=== PATIENT | female | born 1995 | race Caucasian/White ===

== ENCOUNTER 2017-01-29 12:31 | Emergency (ER) | payer OTHER ==
[2017-01-29 13:21] VITALS: BP 111/56; PULSE 89; TEMP 98.3; BMI 25.7
--- NOTE | 2017-01-29 14:06 | PDOC ---
History of Present Illness - General Chief Complaint: Eye Problem Stated Complaint: RT EYE DISCOMFORT Time Seen by Provider: 01/29/17 13:37 History Source: Patient Exam Limitations: No Limitations - History of Present Illness Initial Comments: 01/29/17 14:52 Chief complaint: Eye itching Patient 21-year-old female who wears contact lenses, was [place], and noticed some itching and dryness to the eyelid, been rubbing the eye, she took the contact lenses out 3 days ago, has not noticed any pain to the eye, photophobia but has noticed small amount of increased drainage, yellow discharge specially in comparison to the other eye which is asymptomatic. pt does not have glasses, and is unable to do visual acuity GENERAL/CONSTITUTIONAL: No fever, weakness. dizziness HEAD, EYES, EARS, NOSE AND THROAT: No change in vision. No ear pain or discharge. No sore throat. + Right eye itching and drainage CARDIOVASCULAR: No chest pain RESPIRATORY: No shortness of breath or cough GASTROINTESTINAL: No pain, nausea, vomiting, diarrhea or constipation GENITOURINARY: No dysuria MUSCULOSKELETAL: No neck or back pain SKIN: No rash NEUROLOGIC: No headache, vertigo, loss of consciousness, or loss of sensation. GENERAL: The patient is awake, alert, and fully oriented, in no acute distress. HEAD: Normal with no signs of trauma. EYES: Pupils equal, round and reactive to light, sclera anicteric, conjunctiva clear. right eye with slightly dry, scaly skin to eyelid. no signs of infection. no discharge now. ENT: pharynx: no erythema, no exudate, uvula midline NECK: supple CHEST: clear, nontender, rr ABD: soft, nontender EXTREMITIES: Normal range of motion, no edema. NEUROLOGICAL: Normal speech, normal gait. SKIN: Warm, Dry Past History - Past Medical History Allergies/Adverse Reactions: Allergies Allergy/AdvReac Type Severity Reaction Status Date / Time No Known Allergies Allergy Verified 01/29/17 13:16 Home Medications: Ambulatory Orders Ciprofloxacin 0.3% Eye Drops [Ciloxan 0.3% Eye Drops -] 2 drop OD Q4HWA #1 bottle 01/29/17 Levothyroxine [Synthroid -] 75 mcg PO DAILY 01/29/17 Seizures: Yes - Suicide/Smoking/Psychosocial Hx Smoking History: Never smoked Information on smoking cessation initiated: No Hx Alcohol Use: No Drug/Substance Use Hx: No Substance Use Type: None *Physical Exam - Vital Signs Last Vital Signs Temp Pulse Resp BP Pulse Ox 98.3 F 89 20 111/56 100 01/29/17 13:16 01/29/17 13:16 01/29/17 13:16 01/29/17 13:16 01/29/17 13:16 Procedures - Eye Procedure Alcaine Drops Administered: Yes Eye Irrigated w/ Saline(Ru Lens): No Progress: 01/29/17 14:56 fluorescein right eye negative for ulcer or abrasion Medical Decision Making - Medical Decision Making 01/29/17 14:54 dry skin to right eyelid, some increased yellow discharge to right eye. wears contacts. no pain. fluorescein stain negative. will give ciloxan drops given contact wear use and discharge. otc hydrocortisone to eyelid. follow up with opthamologist *DC/Admit/Observation/Transfer Diagnosis at time of Disposition: Irritation of right eye - Discharge Dispostion Disposition: HOME Condition at time of disposition: Stable Admit: No - Prescriptions Prescriptions: Ciprofloxacin 0.3% Eye Drops [Ciloxan 0.3% Eye Drops -] 2 drop OD Q4HWA #1 bottle - Referrals Referrals: Naty Garcia MD [Primary Care Provider] - Karl Medina MD [Staff Physician] - - Patient Instructions Additional Instructions: 2 drops to the right eye of ciloxan as directed for 5-7 days You can apply either Vaseline or [id number] cortisone cream to the skin around the eye Do not rub do not wear contact lenses until directed to by the precision thread grinder operator Follow-up with precision thread grinder operator Wednesday - Post Discharge Activity Forms/Work/School Notes: Back to Work
== END 2017-01-29 14:08 | disposition home or self-care (01) ==
LOC: JERFT 12:31
PROC: 3E1CX8Z Irrigation of Eye using Irrigating Substance (ICD-10-PCS; principal; 2017-01-29)
DX: H57.8 Other specified disorders of eye and adnexa (principal); E03.9 Hypothyroidism, unspecified; Z86.69 Personal history of other diseases of the nervous system and sense organs
CPT/HCPCS: 99281-25

== ENCOUNTER 2018-11-11 13:31 | Inpatient (IN) | payer OTHER ==
--- NOTE | 2018-11-11 13:42 | PDOC ---
Rapid Medical Evaluation Time Seen by Provider: 11/11/18 13:39 Medical Evaluation: Allergies Allergy/AdvReac Type Severity Reaction Status Date / Time No Known Allergies Allergy Verified 01/29/17 13:16 11/11/18 13:39 I have performed a brief exam on this patient. CC: SOB, fatigued. Decreased exercise tolerance. Hgb-7.3 at [facility]. PE: VSS. AF. Lungs CTAB. Conjunctiva and sublingual pallor. Denies active bleeding. Orders: anemia w/u The patient will proceed to the ER for further evaluation. 11/11/18 13:39 11/11/18 13:42 Discharge Disposition - Diagnosis SOB (shortness of breath) - Referrals - Patient Instructions - Post Discharge Activity
[2018-11-11 15:22] LABS: BASO % 0.9 % (0-2.0); HEMATOCRIT 23.3 % (32.4-45.2); HEMOGLOBIN 7.2 GM/dL (10.7-15.3); LYMPH % 31.7 % (8-40); MCH 20.7 pg (25.7-33.7); MCHC 30.8 g/dl (32.0-36.0); MEAN CELL VOLUME 67.3 fl (80-96); MEAN PLT VOLUME 8.1 fl (7.5-11.1); MONO % 5.2 % (3.8-10.2); NEUT % 59.2 % (42.8-82.8); PLATELET COUNT 302 K/MM3 (134-434); RBC 3.46 M/mm3 (3.60-5.2); RDW 19.2 % (11.6-15.6); WHITE BLOOD COUNT 6.6 K/mm3 (4.0-10.0)
[2018-11-11 15:35] LABS: INR 1.02 (0.83-1.09)
[2018-11-11 15:47] LABS: BILIRUBIN,TOTAL 0.4 mg/dL (0.2-1); BLOOD UREA NITROGEN 14.5 mg/dL (7-18); CALCIUM 8.7 mg/dL (8.5-10.1); CREATININE 0.9 mg/dL (0.55-1.3); POTASSIUM 3.5 mmol/L (3.5-5.1)
[2018-11-11 15:52] LABS: PH,URINE 5.5 (5.0-8.0); URINE APPEARANCE CLEAR; URINE BILIRUBIN NEGATIVE (NEGATIVE); URINE COLOR YELLOW; URINE GLUCOSE (UA) NEGATIVE (NEGATIVE); URINE KETONE NEGATIVE (NEGATIVE); URINE LEUK ESTERASE NEGATIVE (NEGATIVE); URINE NITRITE NEGATIVE (NEGATIVE); URINE PROTEIN NEGATIVE (NEGATIVE); URINE UROBILINOGEN 0.2 mg/dL (0.2-1.0)
[2018-11-11 15:59] LABS: IRON SERUM 22 ug/dL (50-175); TOTAL IRON BINDING CAPACITY 569 ug/dL (250-450)
--- NOTE | 2018-11-11 15:59 | PDOC ---
History of Present Illness - General Chief Complaint: Abnormal Lab Results (Outside) Stated Complaint: SENT BY PCP Time Seen by Provider: 11/11/18 13:39 History Source: Patient Exam Limitations: No Limitations Past History - Past Medical History Allergies/Adverse Reactions: Allergies Allergy/AdvReac Type Severity Reaction Status Date / Time No Known Allergies Allergy Verified 01/29/17 13:16 Home Medications: Ambulatory Orders Ciprofloxacin 0.3% Eye Drops [Ciloxan 0.3% Eye Drops -] 2 drop OD Q4HWA #1 bottle 01/29/17 Levothyroxine [Synthroid -] 75 mcg PO DAILY 01/29/17 Seizures: Yes - Suicide/Smoking/Psychosocial Hx Smoking History: Never smoked Hx Alcohol Use: Yes (social) Drug/Substance Use Hx: No Substance Use Type: None *Physical Exam - Vital Signs Last Vital Signs Temp Pulse Resp BP Pulse Ox 98.6 F 81 20 105/67 100 11/11/18 13:39 11/11/18 13:39 11/11/18 13:39 11/11/18 13:39 11/11/18 13:39 - Physical Exam General Appearance: No: Apparent Distress HEENT: negative: Pharyngeal Erythema, Tonsillar Exudate, Tonsillar Erythema, Nasal Congestion, Rhinorrhea Respiratory/Chest: positive: Lungs Clear, Normal Breath Sounds. negative: Respiratory Distress Cardiovascular: positive: Regular Rhythm, Regular Rate, S1, S2. negative: Murmur Gastrointestinal/Abdominal: positive: Normal Bowel Sounds, Soft. negative: Tender, Distended, Guarding, Rebound Extremity: negative: Pedal Edema, Calf Tenderness Integumentary: positive: Normal Color Neurologic: positive: Fully Oriented, Alert, Normal Mood/Affect ED Treatment Course - LABORATORY CBC & Chemistry Diagram: 11/11/18 15:12 11/11/18 15:12 - ADDITIONAL ORDERS Additional order review: Laboratory Results 11/11/18 11/11/18 11/11/18 15:12 15:12 15:12 PT with INR 12.00 INR 1.02 Sodium 140 Potassium 3.5 Chloride 103 Carbon Dioxide 26 Anion Gap 10 BUN 14.5 Creatinine 0.9 Est GFR (CKD-EPI)AfAm 105.93 Est GFR (CKD-EPI)NonAf 91.40 Random Glucose 95 Calcium 8.7 Total Bilirubin 0.4 AST 43 H ALT 38 Alkaline Phosphatase 73 Total Protein 8.0 Albumin 4.0 Urine Color Yellow Urine Appearance Clear Urine pH 5.5 Ur Specific [place] 1.027 Urine Protein Negative Urine Glucose (UA) Negative Urine Ketones Negative Urine Blood Negative Urine Nitrite Negative Urine Bilirubin Negative Urine Urobilinogen 0.2 Ur Leukocyte Esterase Negative 11/11/18 15:12 RBC 3.46 L MCV 67.3 L MCHC 30.8 L RDW 19.2 H MPV 8.1 Neutrophils % 59.2 Lymphocytes % 31.7 Monocytes % 5.2 Eosinophils % 3.0 Basophils % 0.9 Medical Decision Making - Medical Decision Making 22 y/o F hx of LORI (unknown cause), ?thyroid CA s/p thyroidectomy 7 years ago presents as states recently got insurance and want to [place] yesterday for evaluation and blood work. She was called back today as she was noted to have hemoglobin of 7.3. Patient mentions she has been feeling more fatigued, weak and having VALDES x 2 weeks. States she does have heavy menstrual cycles; cycles are regular in nature. Is currently not on her menstrual cycle. [facility] 10/25. Mentions last year, she was noted to have anemia and started on iron pills, but eventually she ran out and had no doctor for follow-up evaluation. Mentions no evaluation was also done re: her heavy cycles. Also mentions concern for hoarse voice for around 6 months; states doctor at clinic yesterday told her it was possibly related to allergies. Denies fever, URI sxs, congestion, cp, abd pain, n/v, urinary complaints, vaginal bleeding, hematuria, blood in stools, black stools. Hoarse voice - will need referral to ENT for further evaluation Microcytic anemia - Hgb here 7.2 Given symptomatic, will transfuse and admit patient Iron panel was sent and is pending results 11/11/18 15:55 Hgb 7.2 Iron and ferritin low, TIBC high Will transfuse 2 units as d/w Dr. Black Consent obtained Pending admission Signed out to GIANNI Fischer 11/11/18 16:14 *DC/Admit/Observation/Transfer Diagnosis at time of Disposition: SOB (shortness of breath) - Referrals Referrals: Naty Garcia MD [Primary Care Provider] - - Patient Instructions - Post Discharge Activity
--- NOTE | 2018-11-11 16:40 | PDOC ---
*Physical Exam - Vital Signs Last Vital Signs Temp Pulse Resp BP Pulse Ox 98.6 F 81 20 105/67 100 11/11/18 13:39 11/11/18 13:39 11/11/18 13:39 11/11/18 13:39 11/11/18 13:39 - Physical Exam General Appearance: Yes: Appropriately Dressed Rectal Exam: positive: normal exam. negative: hemorrhoids Integumentary: positive: Pale ED Treatment Course - LABORATORY CBC & Chemistry Diagram: 11/11/18 15:12 11/11/18 15:12 - ADDITIONAL ORDERS Additional order review: Laboratory Results 11/11/18 11/11/18 11/11/18 15:12 15:12 15:12 PT with INR INR Sodium Potassium Chloride Carbon Dioxide Anion Gap BUN Creatinine Est GFR (CKD-EPI)AfAm Est GFR (CKD-EPI)NonAf Random Glucose Calcium Iron 22 L TIBC 569 H Iron Saturation 3 L Unsaturated IBC 547 H Ferritin 2.1 L Total Bilirubin AST ALT Alkaline Phosphatase Creatine Kinase 428 H Creatine Kinase Index 0.6 CK-MB (CK-2) 2.8 Troponin I < 0.02 Total Protein Albumin Urine Color Yellow Urine Appearance Clear Urine pH 5.5 Ur Specific [place] 1.027 Urine Protein Negative Urine Glucose (UA) Negative Urine Ketones Negative Urine Blood Negative Urine Nitrite Negative Urine Bilirubin Negative Urine Urobilinogen 0.2 Ur Leukocyte Esterase Negative Urine HCG, Qual Negative Blood Type Antibody Screen Crossmatch 11/11/18 11/11/18 11/11/18 15:12 15:12 15:12 PT with INR 12.00 INR 1.02 Sodium 140 Potassium 3.5 Chloride 103 Carbon Dioxide 26 Anion Gap 10 BUN 14.5 Creatinine 0.9 Est GFR (CKD-EPI)AfAm 105.93 Est GFR (CKD-EPI)NonAf 91.40 Random Glucose 95 Calcium 8.7 Iron TIBC Iron Saturation Unsaturated IBC Ferritin Total Bilirubin 0.4 AST 43 H ALT 38 Alkaline Phosphatase 73 Creatine Kinase Creatine Kinase Index CK-MB (CK-2) Troponin I Total Protein 8.0 Albumin 4.0 Urine Color Urine Appearance Urine pH Ur Specific [place] Urine Protein Urine Glucose (UA) Urine Ketones Urine Blood Urine Nitrite Urine Bilirubin Urine Urobilinogen Ur Leukocyte Esterase Urine HCG, Qual Blood Type O POSITIVE Antibody Screen Negative Crossmatch See Detail 11/11/18 15:12 RBC 3.46 L MCV 67.3 L MCHC 30.8 L RDW 19.2 H MPV 8.1 Neutrophils % 59.2 Lymphocytes % 31.7 Monocytes % 5.2 Eosinophils % 3.0 Basophils % 0.9 Medical Decision Making - Medical Decision Making 11/11/18 16:40 patient signed out to hospitalist team. *DC/Admit/Observation/Transfer Diagnosis at time of Disposition: SOB (shortness of breath) Anemia Qualifiers: Anemia type: iron deficiency Iron deficiency anemia type: unspecified iron deficiency Qualified Code(s): D50.9 - Iron deficiency anemia, unspecified - Discharge Dispostion Decision to Admit order: Yes Decision to Admit order Date/Time: Decision to Admit Order Category Date Time Status Decision to Admit to Hospital Routine Admission 11/11/18 16:39 Ordered - Referrals - Patient Instructions - Post Discharge Activity
[2018-11-11 17:39] VITALS: BMI 32.9
[2018-11-11 17:54] LABS: ANISOCYTOSIS 1+; MACROCYTOSIS 1+; PLATELET ESTIMATE NORMAL
--- NOTE | 2018-11-11 17:55 | HP ---
Admitting History and Physical - Primary Care Physician PCP: Naty Garcia - Admission Chief Complaint: shortness of breath with physical exertion. sent by PCP for blood transfusion. History of Present Illness: Patient is a 22 year old female with a significant past medical history of thyroid cancer with thyroidectomy 2009 s/p radiation therapy. Last radiation was on 2013. Thyroid cancer was diagnosed at age 15 and she has been followed by a valve seater operator/oncologist (Dr. Mendez) but has not seen him in approximately 3 years. She reports very heavy menstruation cycles. States her menstruation last approximately 7 days and on days 3-5, she has to change her menstrual pads almost hourly with numerous clots. Last menstrual cycle was on 10/25/2018. She does not currently follow with a BUSINESS SUPPORT SPECIALIST since she was recently uninsured. She has never received prbc transfusion. She states that from the last few months she has noted that her lower extremities are edematous. She also has periorbital edema. She has been evaluated by her PCP for this. She also reports a hoarse voice and was but on allergy medications and referred to an ENT. She reports to the ED for shortness of breath and increased fatigued with exertion. She has decreased tolerance to exercise. Her Hgb was reported to be [address] [facility] and was sent to the ED for symptomatic anemia. ED course noted for: - 7.2/23.3 - stool occult blood negative - iron studies: iron 22, tibc 569, iron sat 3, unsat ibc 547, ferritin 2.1 History Source: Patient, Family Member Limitations to Obtaining History: No Limitations - Past Medical History ...LMP: 10/25/18 ...: No Heme/Onc: Yes: Anemia - Past Surgical History Additional Past Surgical History: thyroid removal 2/2 to malignant cells/nodules s/p RT treatment - Smoking History Smoking history: Never smoked - Alcohol/Substance Use Hx Alcohol Use: Yes (social) History of Substance Use: reports: None - Social History Usual Living Arrangement: Yes: With Parent ADL: Independent History of Recent Travel: No Home Medications - Allergies Allergies/Adverse Reactions: Allergies Allergy/AdvReac Type Severity Reaction Status Date / Time No Known Allergies Allergy Verified 01/29/17 13:16 - Home Medications Home Medications: Ambulatory Orders Levothyroxine Sodium 1 tab PO DAILY 11/11/18 Ferrous Sulfate [Feosol] 325 mg PO BIDWM #60 ud 11/12/18 Family Disease History - Family Disease History Family Disease History: Other: Father (none), Mother (cardiomyopathy) Review of Systems - Review of Systems Constitutional: reports: No Symptoms Eyes: reports: No Symptoms HENT: reports: No Symptoms Neck: reports: No Symptoms Cardiovascular: reports: No Symptoms Respiratory: reports: Exercise Intolerance Gastrointestinal: reports: No Symptoms Genitourinary: reports: No Symptoms Breasts: reports: No Symptoms Reported Musculoskeletal: reports: No Symptoms Integumentary: reports: No Symptoms Neurological: reports: No Symptoms Endocrine: reports: No Symptoms Hematology/Lymphatic: reports: Excessive Bleeding Psychiatric: reports: No Symptoms Physical Examination Vital Signs: Vital Signs Temperature 98.2 F 11/11/18 17:24 Pulse Rate 76 11/11/18 17:00 Respiratory Rate 20 11/11/18 17:24 Blood Pressure 109/66 11/11/18 17:24 O2 Sat by Pulse Oximetry (%) 100 11/11/18 17:00 Constitutional: Yes: Well Nourished, No Distress, Calm Eyes: Yes: WNL HENT: Yes: Hoarseness, Other (periorbital edema) Neck: Yes: WNL Cardiovascular: Yes: Regular Rate and Rhythm Respiratory: Yes: CTA Bilaterally, SOB on Exertion Gastrointestinal: Yes: WNL, Normal Bowel Sounds ...Rectal Exam: Yes: Other (done by ED resident) Breast(s): Yes: WNL Musculoskeletal: Yes: WNL Edema: LLE: Trace, RLE: Trace Peripheral Pulses: Left Femoral: 4+, Right Femoral: 4+ Integumentary: Yes: WNL Neurological: Yes: Alert, Oriented ...Motor Strength: WNL Psychiatric: Yes: Alert, Oriented Labs: CBC, BMP 11/11/18 15:12 11/11/18 15:12 Problem List - Problems (1) Symptomatic anemia Assessment/Plan: for 2 units of prbc, will give 1 unit and repeat cbc prior to 2nd unit will give lasix 20 units after first unit monitor labs stool occult negative Code(s): D64.9 - ANEMIA, UNSPECIFIED (2) Hypothyroidism Assessment/Plan: continue home dose of synthroid Code(s): E03.9 - HYPOTHYROIDISM, UNSPECIFIED (3) Thyroid cancer Assessment/Plan: patient will follow up with her valve seater operator/oncologist, Dr. Roberts. Code(s): C73 - MALIGNANT NEOPLASM OF THYROID GLAND (4) Hoarse voice quality Assessment/Plan: patient has referral for an ENT. She will follow up as an outpatient no difficulty swallowing Code(s): R49.0 - DYSPHONIA (5) SOB (shortness of breath) Assessment/Plan: secondary to symptomatic anemia. no shortness of breath at rest monitor Code(s): R06.02 - SHORTNESS OF BREATH (6) Iron deficiency anemia due to chronic blood loss Assessment/Plan: for 2 units of prbc patient to f/u with her valve seater operator as an outpatient. she will need further workup including GI workup. She is refusing to get worked up here, during stay, wants to follow up as an outpatient. Code(s): D50.0 - IRON DEFICIENCY ANEMIA SECONDARY TO BLOOD LOSS (CHRONIC) (7) Prophylactic measure Assessment/Plan: fen no ivf monitor electrolytes monitor cmp full code Code(s): Z29.9 - ENCOUNTER FOR PROPHYLACTIC MEASURES, UNSPECIFIED Visit type - Emergency Visit Emergency Visit: Yes ED Registration Date: 11/11/18 Care time: The patient presented to the Emergency Department on the above date and was hospitalized for further evaluation of their emergent condition. - New Patient This patient is new to me today: Yes Date on this admission: 11/12/18 - Critical Care Critical Care patient: No
[2018-11-11] MEDS ORDERED: ACETAMINOPHEN 325 MG TABLET (FP) PO PRN (19:17)
[2018-11-11] MEDS ORDERED: FUROSEMIDE 40 MG/4 ML INJECTABLE VIAL IVPUSH ONE (22:00)
[2018-11-11 23:46] LABS: BASO % 0.8 % (0-2.0); EOS % 3.5 % (0-4.5); HEMATOCRIT 27.3 % (32.4-45.2); HEMOGLOBIN 8.6 GM/dL (10.7-15.3); LYMPH % 38.7 % (8-40); MCH 22.7 pg (25.7-33.7); MCHC 31.6 g/dl (32.0-36.0); MEAN PLT VOLUME 8.1 fl (7.5-11.1); MONO % 5.9 % (3.8-10.2); NEUT % 51.1 % (42.8-82.8); PLATELET COUNT 284 K/MM3 (134-434); RBC 3.79 M/mm3 (3.60-5.2); RDW 22.5 % (11.6-15.6); WHITE BLOOD COUNT 6.9 K/mm3 (4.0-10.0)
[2018-11-12] MEDS ORDERED: LEVOTHYROXINE NA 75 MCG TABLET (FP) PO SCH (07:00)
[2018-11-12 07:49] VITALS: BP 120/50; PULSE 95; TEMP 97.8
[2018-11-12 09:23] LABS: ALBUMIN 3.7 g/dl (3.4-5.0); BILIRUBIN,TOTAL 0.8 mg/dL (0.2-1); BLOOD UREA NITROGEN 15.7 mg/dL (7-18); CALCIUM 8.5 mg/dL (8.5-10.1); MAGNESIUM 2.1 mg/dL (1.8-2.4); POTASSIUM 3.5 mmol/L (3.5-5.1); TOT PROT 7.7 g/dl (6.4-8.2)
[2018-11-12 09:27] LABS: HEMOGLOBIN 10.4 GM/dL (10.7-15.3); MCHC 32.6 g/dl (32.0-36.0); MEAN CELL VOLUME 73.6 fl (80-96); MEAN PLT VOLUME 8.4 fl (7.5-11.1); PLATELET COUNT 277 K/MM3 (134-434); RBC 4.35 M/mm3 (3.60-5.2); RDW 24.5 % (11.6-15.6)
[2018-11-12] MEDS ORDERED: LEVOTHYROXINE NA 125 MCG TABLET (FP) PO ONE (10:09)
--- NOTE | 2018-11-12 10:10 | DS ---
Physical Exam: SUBJECTIVE: Patient seen and examined. States she feels much better. denies any shortness of breath. ambulating around room received two units of prbc without adverse affect patient to follow up with her TACK WELDER, ENT, and PCP as an outpatient. Encouraged her to call for an appointment on Wednesday and to see TACK WELDER as soon as possible. OBJECTIVE: discharge home with outpatient follow up. Vital Signs Period Temp Pulse Resp BP Sys/Martin Pulse Ox Last 24 Hr 97.8 F-98.6 F 64-95 15-20 95-120/50-76 99-100 PHYSICAL EXAM GENERAL: The patient is awake, alert, and fully oriented, in no acute distress. HEAD: Normal with no signs of trauma. EYES: PERRL, extraocular movements intact, sclera anicteric, conjunctiva clear. ENT: Ears normal, nares patent, oropharynx clear without exudates, moist mucous membranes. NECK: Trachea midline, full range of motion, supple. LUNGS: Breath sounds equal, clear to auscultation bilaterally HEART: Regular rate and rhythm ABDOMEN: Soft, nontender, nondistended, normoactive bowel sounds, no guarding, no rebound, no hepatosplenomegaly, no masses. EXTREMITIES: no edema. NEUROLOGICAL: Normal speech, gait steady PSYCH: Normal mood, normal affect. SKIN: Warm, dry, normal turgor, no rashes or lesions noted. LABS Laboratory Results - last 24 hr 11/11/18 11/11/18 11/11/18 15:12 15:12 15:12 WBC 6.6 RBC 3.46 L Hgb 7.2 L Hct 23.3 L MCV 67.3 L MCH 20.7 L MCHC 30.8 L RDW 19.2 H Plt Count 302 MPV 8.1 Absolute Neuts (auto) 3.9 Neutrophils % 59.2 Lymphocytes % 31.7 Monocytes % 5.2 Eosinophils % 3.0 Basophils % 0.9 Nucleated RBC % 0 Hypochromia 2+ Platelet Estimate Normal Platelet Comment No clumping noted Anisocytosis 1+ Microcytosis 1+ Macrocytosis 1+ Retic Count PT with INR 12.00 INR 1.02 Sodium 140 Potassium 3.5 Chloride 103 Carbon Dioxide 26 Anion Gap 10 BUN 14.5 Creatinine 0.9 Est GFR (CKD-EPI)AfAm 105.93 Est GFR (CKD-EPI)NonAf 91.40 Random Glucose 95 Calcium 8.7 Magnesium Iron TIBC Iron Saturation Unsaturated IBC Ferritin Total Bilirubin 0.4 AST 43 H ALT 38 Alkaline Phosphatase 73 Creatine Kinase Creatine Kinase Index CK-MB (CK-2) Troponin I Total Protein 8.0 Albumin 4.0 Urine Color Urine Appearance Urine pH Ur Specific Catlett Urine Protein Urine Glucose (UA) Urine Ketones Urine Blood Urine Nitrite Urine Bilirubin Urine Urobilinogen Ur Leukocyte Esterase Urine HCG, Qual Stool Occult Blood Blood Type Antibody Screen Crossmatch 11/11/18 11/11/18 11/11/18 15:12 15:12 15:12 WBC RBC Hgb Hct MCV MCH MCHC RDW Plt Count MPV Absolute Neuts (auto) Neutrophils % Lymphocytes % Monocytes % Eosinophils % Basophils % Nucleated RBC % Hypochromia Platelet Estimate Platelet Comment Anisocytosis Microcytosis Macrocytosis Retic Count 1.71 H PT with INR INR Sodium Potassium Chloride Carbon Dioxide Anion Gap BUN Creatinine Est GFR (CKD-EPI)AfAm Est GFR (CKD-EPI)NonAf Random Glucose Calcium Magnesium Iron 22 L TIBC 569 H Iron Saturation 3 L Unsaturated IBC 547 H Ferritin 2.1 L Total Bilirubin AST ALT Alkaline Phosphatase Creatine Kinase 428 H Creatine Kinase Index 0.6 CK-MB (CK-2) 2.8 Troponin I < 0.02 Total Protein Albumin Urine Color Urine Appearance Urine pH Ur Specific Catlett Urine Protein Urine Glucose (UA) Urine Ketones Urine Blood Urine Nitrite Urine Bilirubin Urine Urobilinogen Ur Leukocyte Esterase Urine HCG, Qual Stool Occult Blood Blood Type O POSITIVE Antibody Screen Negative Crossmatch See Detail 11/11/18 11/11/18 11/11/18 15:12 15:12 16:21 WBC RBC Hgb Hct MCV MCH MCHC RDW Plt Count MPV Absolute Neuts (auto) Neutrophils % Lymphocytes % Monocytes % Eosinophils % Basophils % Nucleated RBC % Hypochromia Platelet Estimate Platelet Comment Anisocytosis Microcytosis Macrocytosis Retic Count PT with INR INR Sodium Potassium Chloride Carbon Dioxide Anion Gap BUN Creatinine Est GFR (CKD-EPI)AfAm Est GFR (CKD-EPI)NonAf Random Glucose Calcium Magnesium Iron TIBC Iron Saturation Unsaturated IBC Ferritin Total Bilirubin AST ALT Alkaline Phosphatase Creatine Kinase Creatine Kinase Index CK-MB (CK-2) Troponin I Total Protein Albumin Urine Color Yellow Urine Appearance Clear Urine pH 5.5 Ur Specific Catlett 1.027 Urine Protein Negative Urine Glucose (UA) Negative Urine Ketones Negative Urine Blood Negative Urine Nitrite Negative Urine Bilirubin Negative Urine Urobilinogen 0.2 Ur Leukocyte Esterase Negative Urine HCG, Qual Negative Stool Occult Blood Blood Type O POSITIVE Antibody Screen Crossmatch 11/11/18 11/11/18 11/12/18 16:53 23:37 08:41 WBC 6.9 7.0 RBC 3.79 4.35 Hgb 8.6 L 10.4 L Hct 27.3 L D 32.0 L D MCV 72.0 L 73.6 L MCH 22.7 L 24.0 L MCHC 31.6 L 32.6 RDW 22.5 H 24.5 H Plt Count 284 277 MPV 8.1 8.4 Absolute Neuts (auto) 3.5 Neutrophils % 51.1 Lymphocytes % 38.7 D Monocytes % 5.9 Eosinophils % 3.5 Basophils % 0.8 Nucleated RBC % 0 Hypochromia Platelet Estimate Platelet Comment Anisocytosis Microcytosis Macrocytosis Retic Count PT with INR INR Sodium Potassium Chloride Carbon Dioxide Anion Gap BUN Creatinine Est GFR (CKD-EPI)AfAm Est GFR (CKD-EPI)NonAf Random Glucose Calcium Magnesium Iron TIBC Iron Saturation Unsaturated IBC Ferritin Total Bilirubin AST ALT Alkaline Phosphatase Creatine Kinase Creatine Kinase Index CK-MB (CK-2) Troponin I Total Protein Albumin Urine Color Urine Appearance Urine pH Ur Specific Catlett Urine Protein Urine Glucose (UA) Urine Ketones Urine Blood Urine Nitrite Urine Bilirubin Urine Urobilinogen Ur Leukocyte Esterase Urine HCG, Qual Stool Occult Blood Negative Blood Type Antibody Screen Crossmatch 11/12/18 08:41 WBC RBC Hgb Hct MCV MCH MCHC RDW Plt Count MPV Absolute Neuts (auto) Neutrophils % Lymphocytes % Monocytes % Eosinophils % Basophils % Nucleated RBC % Hypochromia Platelet Estimate Platelet Comment Anisocytosis Microcytosis Macrocytosis Retic Count PT with INR INR Sodium 138 Potassium 3.5 Chloride 102 Carbon Dioxide 29 Anion Gap 8 BUN 15.7 Creatinine 1.0 Est GFR (CKD-EPI)AfAm 93.26 Est GFR (CKD-EPI)NonAf 80.47 Random Glucose 104 Calcium 8.5 Magnesium 2.1 Iron TIBC Iron Saturation Unsaturated IBC Ferritin Total Bilirubin 0.8 AST 48 H ALT 39 Alkaline Phosphatase 78 Creatine Kinase Creatine Kinase Index CK-MB (CK-2) Troponin I Total Protein 7.7 Albumin 3.7 Urine Color Urine Appearance Urine pH Ur Specific Catlett Urine Protein Urine Glucose (UA) Urine Ketones Urine Blood Urine Nitrite Urine Bilirubin Urine Urobilinogen Ur Leukocyte Esterase Urine HCG, Qual Stool Occult Blood Blood Type Antibody Screen Crossmatch HOSPITAL COURSE: Date of Admission:11/11/18 Date of Discharge: 11/12/18 Minutes to complete discharge: 60 Discharge Summary Reason For Visit: SHORTNESS OF BREATH,ANEMIA Current Active Problems Anemia (Acute) Hoarse voice quality (Acute) Hypothyroidism (Acute) Iron deficiency anemia due to chronic blood loss (Acute) Prophylactic measure (Acute) SOB (shortness of breath) (Acute) Symptomatic anemia (Acute) Thyroid cancer (Acute) Condition: Stable - Instructions Diet, Activity, Other Instructions: Mrs Garcia: You were admitted for a blood transfusion for low blood counts. You have received 2 units of blood. We will be sending you home with the following instructions Vaginal Bleed: Please follow up with your renewable energy project manager by calling their office to make an appointment. You will need to be closely monitored so that your blood counts do not drop again. Continue taking the iron pills. It is important that you see your foundry operator/oncologist to follow up as well as discuss your iron deficiency anemia. Next steps: 1. follow up with your primary care doctor and ENT doctor 2. Follow up with foundry operator/oncologist to further evaluate your iron deficiency anemia Thank you for allowing us to care for you. Referrals: Jorgito Lawson MD [Staff Physician] - (ENT, call and make an appointment) Naty Garcia MD [Primary Care Provider] - Disposition: HOME - Home Medications Comprehensive Discharge Medication List: Ambulatory Orders Levothyroxine Sodium 1 tab PO DAILY 11/11/18 Problem List - Problems (1) Symptomatic anemia Assessment/Plan: for 2 units of prbc with stable hmg/hct start on iron supplements received lasix in between blood transfusions. stool occult negative Code(s): D64.9 - ANEMIA, UNSPECIFIED (2) Hypothyroidism Assessment/Plan: continue home dose of synthroid 200mcgs Code(s): E03.9 - HYPOTHYROIDISM, UNSPECIFIED (3) Thyroid cancer Assessment/Plan: patient will follow up with her foundry operator/oncologist, Dr. Roberts. Code(s): C73 - MALIGNANT NEOPLASM OF THYROID GLAND (4) Hoarse voice quality Assessment/Plan: patient has referral for an ENT. She will follow up as an outpatient no difficulty swallowing Code(s): R49.0 - DYSPHONIA (5) SOB (shortness of breath) Assessment/Plan: resolved. secondary to symptomatic anemia. no shortness of breath s/p transfusions. Code(s): R06.02 - SHORTNESS OF BREATH (6) Iron deficiency anemia due to chronic blood loss Assessment/Plan: s/p 2 units of prbc patient to f/u with her foundry operator as an outpatient. she will need further workup including GI workup. She is refusing to get worked up here, during stay, wants to follow up as an outpatient. start PO iron therapy Code(s): D50.0 - IRON DEFICIENCY ANEMIA SECONDARY TO BLOOD LOSS (CHRONIC) (7) Prophylactic measure Code(s): Z29.9 - ENCOUNTER FOR PROPHYLACTIC MEASURES, UNSPECIFIED This patient is new to me today: No Emergency Visit: Yes ED Registration Date: 11/11/18 Care time: The patient presented to the Emergency Department on the above date and was hospitalized for further evaluation of their emergent condition. Critical Care patient: No - Discharge Referral Referred to [facility] No
--- NOTE | 2018-11-12 15:20 | EKG ---
Test Reason : Blood Pressure : / mmHG Vent. Rate : 065 BPM Atrial Rate : 065 BPM P-R Int : 194 ms QRS Dur : 086 ms QT Int : 384 ms P-R-T Axes : 033 066 254 degrees QTc Int : 399 ms NORMAL SINUS RHYTHM LOW VOLTAGE QRS NONSPECIFIC T WAVE ABNORMALITY ABNORMAL ECG WHEN COMPARED WITH ECG OF 23-FEB-2017 10:26, QRS VOLTAGE HAS DECREASED NONSPECIFIC T WAVE ABNORMALITY, WORSE IN INFERIOR LEADS NONSPECIFIC T WAVE ABNORMALITY NOW EVIDENT IN ANTEROLATERAL LEADS Confirmed by MD Carson, Ramo ([id number]) on 11/12/2018 3:19:57 PM Referred By: Confirmed By:Ramo Byrd MD
[2018-11-12] MEDS ORDERED: FERROUS SO4 325 MG TABLET (FP) PO SCH (17:30)
== END 2018-11-12 12:04 | disposition home or self-care (01) | DRG 663 ==
LOC: JER 13:31 → JERBED 16:39 → J6S 17:38
PROVIDERS: ADMIT Internal Medicine; ATTEND Nurse Practitioner Family
PROC: 30233N1 Transfusion of Nonautologous Red Blood Cells into Peripheral Vein, Percutaneous Approach (ICD-10-PCS; principal; 2018-11-11)
DX: D50.0 Iron deficiency anemia secondary to blood loss (chronic) (principal); Z85.850 Personal history of malignant neoplasm of thyroid; E03.9 Hypothyroidism, unspecified; R49.0 Dysphonia
CPT/HCPCS: 36415; 36430; 36511; 80053; 81003; 82272; 82550; 82553; 82728; 83540; 83550; 83735; 84484; 84703; 85025; 85027; 85044; 85610; 86850; 86900; 86901; 86922; 93005; 93010; 99285-25; P9038; P9058

== ENCOUNTER 2022-04-03 03:10 | Observation (INO) | payer OTHER ==
[2022-04-03 04:53] LABS: BASO % 0.8 % (0-2.0); EOS % 4.2 % (0-4.5); HEMATOCRIT 20.6 % (32.4-45.2); LYMPH % 34.9 % (8-40); MCHC 29.5 g/dl (32.0-36.0); MEAN CELL VOLUME 62.2 fl (80-96); MEAN PLT VOLUME 8.4 fl (7.5-11.1); MONO % 5.1 % (3.8-10.2); PLATELET COUNT 301 10^3/uL (134-434); RBC 3.32 M/mm3 (3.60-5.2); RDW 20.6 % (11.6-15.6); WHITE BLOOD COUNT 6.3 K/mm3 (4.0-10.0)
[2022-04-03 05:11] LABS: CHLORIDE 106 mmol/L (98-107); SODIUM 139 mmol/L (136-145)
[2022-04-03 05:13] LABS: CALCIUM 8.8 mg/dL (8.5-10.1)
[2022-04-03 05:14] LABS: ALBUMIN 3.9 g/dl (3.4-5.0); ANION GAP 9 MMOL/L (8-16); BLOOD UREA NITROGEN 15.5 mg/dL (7-18); CO2 25 mmol/L (21-32); GLUCOSE,RANDOM 108 mg/dL (74-106)
[2022-04-03 05:17] LABS: CREATININE 0.9 mg/dL (0.55-1.3); SGOT/AST 29 U/L (15-37); SGPT/ALT 30 U/L (13-61)
[2022-04-03 05:18] LABS: BILIRUBIN,TOTAL 0.3 mg/dL (0.2-1); TOT PROT 7.8 g/dl (6.4-8.2)
[2022-04-03 05:20] LABS: ALK PHOS 63 U/L (45-117)
[2022-04-03 05:28] LABS: MCH 18.4 pg (25.7-33.7)
[2022-04-03 05:29] LABS: HEMOGLOBIN 6.1 GM/dL (10.7-15.3)
[2022-04-03 09:23] LABS: ANISOCYTOSIS 3+; MACROCYTOSIS 0; TEAR DROP CELLS 1+
[2022-04-03 10:48] LABS: IRON SERUM 14 ug/dL (50-175); TOTAL IRON BINDING CAPACITY 467 ug/dL (250-450)
[2022-04-03] MEDS ORDERED: HYDROCORTISONE SOD SUCCINATE 100 MG/2 ML VIAL IVPUSH ONE (11:25)
[2022-04-03] MEDS: ENOXAPARIN NA (PORCINE) 40 MG/0.4 ML DISP.SYRIN SQ SCH ×2 (11:37→12:12)
[2022-04-03] MEDS: LEVOTHYROXINE SODIUM 100 MCG 5 ML VIAL IVPUSH SCH ×2 (11:37→12:12)
[2022-04-03] MEDS ORDERED: ENOXAPARIN NA (PORCINE) 40 MG/0.4 ML DISP.SYRIN SQ ONE ×2 (11:44→16:34)
[2022-04-03] MEDS ORDERED: HYDROCORTISONE SOD SUCCINATE 100 MG/2 ML VIAL ONE (11:44)
[2022-04-03] MEDS ORDERED: IRON SUCROSE INJECTION 200 MG in SODIUM CHLORIDE 90 ML IVPB ONE (15:00)
[2022-04-03 20:54] VITALS: BMI 32.8
[2022-04-03] MEDS ORDERED: FLU VACC QS2022-23(6MOS UP)/PF 60 MCG/0.5 ML SYRINGE IM ONE (21:30)
[2022-04-03 22:25] LABS: HEMATOCRIT 22.6 % (32.4-45.2); MCHC 30.3 g/dl (32.0-36.0); MEAN CELL VOLUME 64.9 fl (80-96); MEAN PLT VOLUME 8.5 fl (7.5-11.1); PLATELET COUNT 289 10^3/uL (134-434); RBC 3.48 M/mm3 (3.60-5.2); RDW 25.1 % (11.6-15.6)
[2022-04-03 22:29] LABS: MCH 19.7 pg (25.7-33.7)
[2022-04-03 22:32] LABS: HEMOGLOBIN 6.9 GM/dL (10.7-15.3)
[2022-04-04 07:58] LABS: BASO % 0.4 % (0-2.0); EOS % 0.1 % (0-4.5); HEMOGLOBIN 8.1 GM/dL (10.7-15.3); LYMPH % 23.3 % (8-40); MCHC 31.1 g/dl (32.0-36.0); MEAN CELL VOLUME 67.6 fl (80-96); MEAN PLT VOLUME 8.8 fl (7.5-11.1); MONO % 6.1 % (3.8-10.2); NEUT % 70.1 % (42.8-82.8); PLATELET COUNT 294 10^3/uL (134-434); RBC 3.84 M/mm3 (3.60-5.2); WHITE BLOOD COUNT 8.3 K/mm3 (4.0-10.0)
[2022-04-04 08:24] LABS: ALBUMIN 3.4 g/dl (3.4-5.0); CALCIUM 8.6 mg/dL (8.5-10.1)
[2022-04-04 08:25] LABS: BLOOD UREA NITROGEN 9.2 mg/dL (7-18); MAGNESIUM 2.3 mg/dL (1.8-2.4)
[2022-04-04 08:27] LABS: CREATININE 0.7 mg/dL (0.55-1.3)
[2022-04-04 08:28] LABS: PHOSPHOROUS 3.5 mg/dL (2.5-4.9)
[2022-04-04 08:29] LABS: BILIRUBIN,TOTAL 0.6 mg/dL (0.2-1); TOT PROT 6.9 g/dl (6.4-8.2)
[2022-04-04] MEDS ORDERED: FLU VACC QS2022-23(6MOS UP)/PF 60 MCG/0.5 ML SYRINGE IM ONE (10:00)
[2022-04-04] MEDS: LEVOTHYROXINE SODIUM 100 MCG 5 ML VIAL IVPUSH SCH (10:49)
[2022-04-04] MEDS: LIOTHYRONINE SODIUM 25 MCG TABLET PO SCH (10:50)
[2022-04-05] MEDS: LIOTHYRONINE SODIUM 25 MCG TABLET PO SCH (07:02)
[2022-04-05 09:22] LABS: BASO % 0.9 % (0-2.0); EOS % 1.9 % (0-4.5); HEMATOCRIT 27.2 % (32.4-45.2); HEMOGLOBIN 8.3 GM/dL (10.7-15.3); MCH 20.9 pg (25.7-33.7); MCHC 30.7 g/dl (32.0-36.0); MEAN PLT VOLUME 8.7 fl (7.5-11.1); MONO % 4.2 % (3.8-10.2); PLATELET COUNT 320 10^3/uL (134-434); RDW 26.1 % (11.6-15.6); WHITE BLOOD COUNT 9.1 K/mm3 (4.0-10.0)
[2022-04-05 09:49] LABS: CALCIUM 8.7 mg/dL (8.5-10.1)
[2022-04-05 09:50] LABS: BLOOD UREA NITROGEN 10.6 mg/dL (7-18)
[2022-04-05 09:53] LABS: CREATININE 0.8 mg/dL (0.55-1.3)
[2022-04-05] MEDS: LEVOTHYROXINE SODIUM 100 MCG 5 ML VIAL IVPUSH SCH (11:07)
[2022-04-05] MEDS ORDERED: FUROSEMIDE 40 MG TABLET (FP) PO ONE (15:08)
[2022-04-05] MEDS ORDERED: FERROUS SO4 325 MG TABLET (FP) PO SCH (22:00)
[2022-04-06] MEDS: LIOTHYRONINE SODIUM 25 MCG TABLET PO SCH (06:32)
[2022-04-06] MEDS ORDERED: LEVOTHYROXINE NA 200 MCG TABLET PO SCH (07:00)
[2022-04-06 07:23] VITALS: RESP 18
[2022-04-06 09:04] LABS: BASO % 0.8 % (0-2.0); EOS % 2.9 % (0-4.5); HEMATOCRIT 28.2 % (32.4-45.2); HEMOGLOBIN 8.7 GM/dL (10.7-15.3); LYMPH % 28.6 % (8-40); MCH 21.2 pg (25.7-33.7); MCHC 30.9 g/dl (32.0-36.0); MEAN CELL VOLUME 68.5 fl (80-96); MEAN PLT VOLUME 8.2 fl (7.5-11.1); MONO % 5.9 % (3.8-10.2); NEUT % 61.8 % (42.8-82.8); PLATELET COUNT 307 10^3/uL (134-434); RBC 4.11 M/mm3 (3.60-5.2); RDW 26.8 % (11.6-15.6); WHITE BLOOD COUNT 7.9 K/mm3 (4.0-10.0)
[2022-04-06 09:21] LABS: BLOOD UREA NITROGEN 9.7 mg/dL (7-18); CALCIUM 8.8 mg/dL (8.5-10.1)
[2022-04-06 09:25] LABS: CREATININE 0.8 mg/dL (0.55-1.3)
[2022-04-06 09:43] LABS: ANISOCYTOSIS 3+; MACROCYTOSIS 0; OVALOCYTE 2+; TEAR DROP CELLS 1+
[2022-04-06 13:06] VITALS: BP 120/64; PULSE 80; TEMP 98.7
== END 2022-04-06 14:58 | disposition home or self-care (01) ==
LOC: JER 03:10 → JERBED 06:40 → J7W 19:56
PROVIDERS: ADMIT Internal Medicine; ATTEND Internal Medicine
PROC: 30233N1 Transfusion of Nonautologous Red Blood Cells into Peripheral Vein, Percutaneous Approach (ICD-10-PCS; principal; 2022-04-03)
PROC: 3E033GC Introduction of Other Therapeutic Substance into Peripheral Vein, Percutaneous Approach (ICD-10-PCS; 2022-04-03)
DX: D50.9 Iron deficiency anemia, unspecified (principal); E03.9 Hypothyroidism, unspecified; Z33.1 Pregnant state, incidental; Z85.850 Personal history of malignant neoplasm of thyroid; R06.02 Shortness of breath; D64.89 Other specified anemias
CPT/HCPCS: 0241U-QW; 36415; 36430; 36511; 76801-TC; 80048; 80053; 82024; 82533; 82607; 82728; 82746; 83540; 83550; 83735; 84100; 84439; 84443; 84466; 84481; 84702; 84703; 85025; 85027; 85045; 86850; 86900; 86901; 86922; 93005; 93010; 96374; 96375; 99285-25; G0378; J1756; P9038; P9058

== ENCOUNTER 2022-04-17 15:31 | Emergency (ER) | payer OTHER ==
[2022-04-17] MEDS ORDERED: ACETAMINOPHEN 1000 MG/100 ML BAG IVPB ONE (15:49)
[2022-04-17] MEDS ORDERED: DICYCLOMINE HCL 20 MG TABLET PO ONE (15:49)
[2022-04-17 15:50] VITALS: BP 110/72; PULSE 96; RESP 20; TEMP 98.6; BMI 32.4
[2022-04-17] MEDS ORDERED: ACETAMINOPHEN INJECTION 100 ML IVPB ONE (17:04)
[2022-04-17] MEDS ORDERED: DICYCLOMINE HCL 10 MG CAPSULE ONE (17:04)
[2022-04-17 17:44] LABS: BASO % 0.5 % (0-2.0); EOS % 0.3 % (0-4.5); HEMOGLOBIN 8.2 GM/dL (10.7-15.3); MCH 24.4 pg (25.7-33.7); MCHC 32.7 g/dl (32.0-36.0); MEAN CELL VOLUME 74.8 fl (80-96); MEAN PLT VOLUME 9.3 fl (7.5-11.1); MONO % 8.9 % (3.8-10.2); NEUT % 78.3 % (42.8-82.8); PLATELET COUNT 214 10^3/uL (134-434); RBC 3.34 M/mm3 (3.60-5.2); RDW 33.5 % (11.6-15.6); WHITE BLOOD COUNT 6.6 K/mm3 (4.0-10.0)
[2022-04-17 18:06] LABS: CALCIUM 8.7 mg/dL (8.5-10.1)
[2022-04-17 18:07] LABS: ALBUMIN 3.9 g/dl (3.4-5.0); BLOOD UREA NITROGEN 8.5 mg/dL (7-18)
[2022-04-17 18:10] LABS: CREATININE 0.7 mg/dL (0.55-1.3)
[2022-04-17 18:11] LABS: BILIRUBIN,TOTAL 0.5 mg/dL (0.2-1); TOT PROT 7.7 g/dl (6.4-8.2)
== END 2022-04-17 21:12 | disposition home or self-care (01) ==
LOC: JER 15:31
PROC: 3E033GC Introduction of Other Therapeutic Substance into Peripheral Vein, Percutaneous Approach (ICD-10-PCS; principal; 2022-04-17)
DX: O03.9 Complete or unspecified spontaneous abortion without complication (principal); Z3A.08 8 weeks gestation of pregnancy
CPT/HCPCS: 36415; 76817-TC; 80053; 83690; 84702; 85025; 87040; 99284-25